=== PATIENT | female | born 1955 | race Caucasian/White ===

== ENCOUNTER 2019-05-06 06:36 | Inpatient (IN) | payer OTHER ==
[2019-05-06] MEDS ORDERED: Ringers Lactate 1,000 ML IV ONE (07:16)
[2019-05-06] MEDS ORDERED: MIDAZOLAM HCL 2 MG/2 ML INJ ONE (07:30)
[2019-05-06] MEDS ORDERED: FENTANYL CITR 100 MCG/2 ML ONE (07:30)
[2019-05-06] MEDS ORDERED: LIDOCAINE 1% MPF 30 ML VIAL ONE ×2 (07:30→07:36)
[2019-05-06] MEDS ORDERED: PROPOFOL 200 MG/20 ML VIAL IV ONE (07:30)
[2019-05-06] MEDS: LIDOCAINE 4% TOP SOLUTION ONE ×2 (07:35→07:50)
[2019-05-06] MEDS ORDERED: GLYCOPYRROLATE 0.2 MG/ML SYR ONE (07:36)
[2019-05-06] MEDS ORDERED: Phenylephrine HCl 10 MG/ML 1 ML VIAL ONE (07:36)
--- NOTE | 2019-05-06 10:03 | RAD REPORT ---
EXAM DESCRIPTION: RAD - Chest Single View - 05/06/2019 9:48 am CLINICAL HISTORY: Post bronchoscopy chest film COMPARISON: Chest exam April 02, 2019, CT chest April 15, 2019 TECHNIQUE: AP portable chest image was obtained . FINDINGS: Approximately 20% pneumothorax is present in the lateral right lung base. No pneumothorax seen in the upper right lung field. There is an increase in overall density to the right lung parench yma. This is likely a combination of atelectasis and hemorrhage around the previously detailed lung m ass. Trachea remains midline. Left lung field is clear. Heart and vasculature are normal. No pleural fluid collections seen. No acute bony abnormality seen. No acute aortic findings suspected. Findings telephoned to same-day surgery. IMPRESSION: Approximately 20% right side pneumothorax at the base. Right lower lobe opacification from a combination of atelectasis and a small amount of hemorrhage carson und the known mass.
--- NOTE | 2019-05-06 10:28 | RAD REPORT ---
EXAM DESCRIPTION: RAD - FLUORO-GUIDE FOR BRONCH UPT1HR - 05/06/2019 9:07 am FINDINGS: There were 4 portable C-arm views submitted from a fluoroscopic assisted right lower lobe bronchoscopic biopsy. Fluoro time was 2 minutes 47 seconds.
--- NOTE | 2019-05-06 11:32 | RAD REPORT ---
EXAM DESCRIPTION: RAD - Chest Single View - 05/06/2019 11:23 am CLINICAL HISTORY: repeat from pneumo Pneumothorax COMPARISON: Chest Single View dated 05/06/2019; Chest Pa And Lat (2 Views) dated 04/02/2019; Chest Pa And Lat (2 Views) dated 03/17/2019; Thorax W/ Con dated 04/15/2019; FLUORO-GUIDE FOR BRONCH UPT1HR dated 05/06/2019 FINDINGS: Portable technique limits examination quality. The patient's known right-sided pneumothorax has mildly increased in size, now estimated at 30% total lung volume. Opacity in the right lower lobe appears unchanged. The heart is mildly prominent in siz e.
--- NOTE | 2019-05-06 12:02 | P.HP ---
Certification for Inpatient Patient admitted to: Inpatient With expected LOS: <2 Midnights Patient will require the following post-hospital care: None Practitioner: I am a practitioner with admitting privileges, knowledge of patient current condition, hospital course, and medical plan of care. Services: Services provided to patient in accordance with Admission requirements found in Title 42 Section 412.3 of the Code of Federal Regulations Patient History Date of Service: 05/06/19 Reason for admission: Pneumothorax after lung biopsy History of Present Illness: PT is 63 yrs of age AW pneumothorax after lung biopsy. Slight progression . Hxof COPD c/o r sided chest pain. Hx of pneumothorax Allergies morphine Adverse Reaction (Verified 05/06/19 08:54) Nausea/Vomiting - Past Medical/Surgical History -: Depression -: recurrent pneumothorax -: Hysterectomey -: lumpectomy Review of Systems 10-point ROS is otherwise unremarkable Respiratory: Shortness of Breath, Pleuritic Pain Cardiovascular: Chest Pain Physical Examination - Vital Signs Temperature: 97.1 F Blood Pressure: 166/83 Pulse: 68 Respirations: 16 - Physical Exam General: Alert, Oriented x3, Mild distress Neck: Supple Respiratory: Clear to auscultation bilaterally, Diminished Cardiovascular: No edema, Normal pulses, Regular rate/rhythm, Normal S1 S2 Gastrointestinal: Normal bowel sounds, Soft and benign, Non-distended Assessment and Plan - Problems (Diagnosis) (1) Pneumothorax after biopsy Current Visit: Yes Status: Acute Plan: Admit obesrve. May need chest tube, Consult Dr. Francois. Repeat CXRY in 1 hours. Slight progression of pneumo. Hxof tobacco use Plan to discharge in: 48 Hours - Advance Directives Does patient have a Living Will: No Does patient have a Durable POA for Healthcare: No
--- NOTE | 2019-05-06 12:05 | P.OP ---
Date of Service: 05/06/19 (RLL Lung Biopsy with BAL) Findings and Operative Technique Pt is 63 yrs of age evaluated for RLL lung mass simona for bronc today and developed a pneumo after the procedure. Hx of RLL mass. High risk for cancer. Bronch otherwise normal .No mass visible. Multiple Bipsies and BAl form RLL.Sedation by anesthesia. After from one episode of desat pt did well Normal vocal cords and trachea.
--- NOTE | 2019-05-06 13:40 | RAD REPORT ---
EXAM DESCRIPTION: RAD - Chest Single View - 05/06/2019 1:20 pm CLINICAL HISTORY: Post bronchoscopy pneumothorax COMPARISON: Expiration chests May 06 TECHNIQUE: AP portable chest image was obtained as a portable examination 1317 hours . FINDINGS: Right base pneumothorax has worsened to approximately 40%. There is greater atelectasis of the right middle and lower lobes. Pneumothorax extends along the upper lateral right chest with some minimal or very early volume loss of the right upper lobe. Heart and vasculature are normal. No pleural fluid component. No acute bony abnormality seen. No acu te aortic findings suspected. Findings telephoned to the referring physician 1336 hours. IMPRESSION: Further worsening of the right-sided pneumothorax now approximately 40%.
[2019-05-06] MEDS ORDERED: NICOTINE 21 MG/PAT TD SCH (14:00)
[2019-05-06] MEDS ORDERED: PARoxetine HCl 10 MG TAB PO SCH (14:00)
[2019-05-06] MEDS: METHYLPREDNISOLONE 40 MG INJ IV SCH (14:04)
[2019-05-06] MEDS: IPRATROPIUM BROM 0.5MG/2.5ML NEB SCH ×2 (14:25→20:00)
[2019-05-06] MEDS: ARFORMOTEROL TARTRATE 15 MCG/2 ML VIAL.NEB NEB SCH ×2 (14:25→20:00)
[2019-05-06] MEDS ORDERED: LIDOCAINE 1% MPF 30 ML VIAL SQ ONE ×2 (14:27→15:00)
[2019-05-06] MEDS: FENTANYL CITR 100 MCG/2 ML IV PRN ×2 (15:11→20:22)
--- NOTE | 2019-05-06 15:11 | P.OP ---
Preoperative diagnosis: RIGHT Pneumothorax Postoperative diagnosis: RIGHT Pneumothorax Primary procedure: Placement of Right Thoracostomy Tube Anesthesia: Local 1% lidocaine Estimated blood loss: <1cc Specimen: None Findings: Good air return Complications: None Drain(s): Other (18 Icelandic THAL chest tube) Transferred to: Other (room) Condition: Good
--- NOTE | 2019-05-06 15:40 | RAD REPORT ---
EXAM DESCRIPTION: RAD - Chest Single View - 05/06/2019 3:32 pm CLINICAL HISTORY: new chest tube Chest pain. COMPARISON: <Comparisons> FINDINGS: Portable technique limits examination quality. The right-sided chest tube has been placed its tip directed cephalad along the lateral pleural space on the right. Previously noted pneumothorax has been significantly decompressed. Opacity in the right lung base persists.
[2019-05-06] MEDS: HYDROCODONE/APAP 5/325 MG TAB PO PRN (18:40)
[2019-05-06] MEDS: NICOTINE 21 MG/PAT TD SCH (20:15)
[2019-05-06] MEDS: PARoxetine HCl 10 MG TAB PO SCH (20:15)
--- NOTE | 2019-05-06 21:17 | CON ---
Date of Consultation: 05/06/2019 History Of Present Illness: Patient is a 63-year-old woman who presents to the hospital fo r bronchoscopy with Dr. Andre Solitario, who performed a lung biopsy/bronchoscopy. Patient had devel opment of a small pneumothorax, which continued to progress throughout the course of the day and as s uch I was consulted for placement of right thoracostomy tube to allow for resolution and improvement of the right-sided pneumothorax. Patient does have a history of COPD and right-sided chest pain and a history of pneumothorax prior. Past Medical History: Significant for depression, recurrent pneumothorax, hysterectomy, lumpectomy. Allergies: MORPHINE. Review of Systems: A 10-point review of systems other than in HPI, she has no shortness of breath at this time. Physical Examination: Vital Signs: At the time of my examination, her BMI is 26.6. Her blood pressure 148/75, respiratory rate 16, pulse is 65, temperature is 98.2. General: She is awake, alert, and oriented. Psychiatric: She is appropriate and conversive. She appears mildly short of breath, but is able to talk with oxygen on. HEENT: Otherwise normocephalic. Sclerae are anicteric. Mucous membranes are moist. Oropharynx is clear. Poor dentition. Neck: Supple. No JVD. Chest: Normal expansion and excursion. There is decreased breath sounds on the right. Abdomen: Soft, nontender, nondistended. Extremities: Skin is warm and dry. Imaging Studies: She had imaging performed which included a chest x-ray, the last of which showed ex pansion and pneumothorax to approximately 40% on the right. Assessment And Plan: This is a 63-year-old female who has signs and symptoms of a progressing pneumo thorax on the right. 1.Continue medical management. 2.I explained the risks, benefits, and alternatives of placement of right thoracostomy tube, includi ng but not limited to bleeding, infection, damage to surrounding tissues, including nerves and lung, need for further operations and procedures, the patient agrees to proceed as indicated. Thank you for this interesting consult. EDIE/TERRI Voice ID: [id number] Report ID: [id number]
[2019-05-07] MEDS: METHYLPREDNISOLONE 40 MG INJ IV SCH ×2 (00:16→08:27)
[2019-05-07] MEDS: HYDROCODONE/APAP 5/325 MG TAB PO PRN ×2 (00:22→20:39)
[2019-05-07] MEDS: IPRATROPIUM BROM 0.5MG/2.5ML NEB SCH ×2 (02:00→08:10)
--- NOTE | 2019-05-07 02:14 | OP ---
Date of Procedure: 05/06/2019 Surgeon: Gavin Pickard MD, Preoperative Diagnosis: Right pneumothorax. Postoperative Diagnosis: Right pneumothorax. Procedure Performed: Placement of a right thoracostomy tube. Anesthesia: Local 1% lidocaine used. Estimated Blood Loss: Less than 1 mL. Specimen: None. Findings: Good air returned. Complications: None. Drains: An 18-Tunisian Thal chest tube was placed in the right 6th, 7th intercostal space. Condition: Patient remained in room in good condition throughout the procedure. Procedure In Detail: After informed consent was obtained, patient was prepped and draped in the usua l sterile fashion. After adequate anesthesia was achieved with 1% lidocaine, I placed a finder needl e into the thoracic cavity, obtained bubbles at approximately 6th and 7th intercostal space on the ri ght slightly anterior to the midaxillary line. The wire was then advanced into the chest cavity with out evidence of complication. I made an incision with the scalpel to allow for placement of the ches t tube. I then used sequential dilatation using Seldinger technique over the wire to go over the rib in the intercostal space without evidence of complication. The 18-Tunisian Thal chest tube was then d irected posterior superiorly and passed, and easily air was returned and I could hear titling air thr ough the chest tube. We then secured to the skin with a 0 nylon suture which was in the set and a st erile dressing was placed over top. The assembly was hooked up to Pneumo-Vac suction and to the wall at 40 mmHg of wall suction and bubbles were emanating and titling quite well. The patient tolerated the procedure well without evidence of complication and remained in the room throughout the procedur e in good condition. All counts were correct at the end of the case. EDIE/MODL Voice ID: [id number] Report ID: [id number]
[2019-05-07] MEDS: ARFORMOTEROL TARTRATE 15 MCG/2 ML VIAL.NEB NEB SCH ×2 (08:10→20:00)
--- NOTE | 2019-05-07 08:14 | RAD REPORT ---
EXAM DESCRIPTION: Sherri Single View05/07/2019 6:48 am CLINICAL HISTORY: Chest pain COMPARISON: May 06, 2019 FINDINGS: Right chest tube remains place. Minimal right pneumothorax is present. No other significant change IMPRESSION: Minimal right pneumothorax
--- NOTE | 2019-05-07 08:57 | P.PN ---
Subjective Date of Service: 05/07/19 Chief Complaint: Pneumothorax after lung biopsy Subjective: Improving (Patient is doing well there is no air leak on the chest tube with chest pain has declined) Review of Systems General: Weakness Cardiovascular: Chest Pain Physical Examination - Vital Signs Temperature: 98.2 F Blood Pressure: 174/77 Pulse: 52 Respirations: 20 Pulse Ox (%): 100 - Physical Exam General: Alert, Oriented x3 HEENT: PERRLA Neck: No Thyromegaly Cardiovascular: No edema, Regular rate/rhythm Assessment & Plan - Problems (Diagnosis) (1) Pneumothorax after biopsy Current Visit: Yes Status: Acute Plan: Patient is doing much better status post chest tube there is no air leak at lung is fully expanded discuss with pathology FNA is nondiagnostic plan to proceed with a fine-needle aspiration biopsy of the right lung mass discuss with the radiologist the labs ordered
[2019-05-07 09:29] LABS: Absolute Lymphocytes (CBC) 0.6 K/uL (0.7-4.9); Basophils % 0.1 % (0-1.3); Hematocrit 41.8 % (36.0-45.0); Lymphocytes % 6.7 % (15.3-44.8); MPV 7.7 fL (7.6-11.3); RBC Red Blood Cell Count 4.67 M/uL (3.86-4.86)
[2019-05-07 09:32] LABS: Protime INR 1.03
[2019-05-07 09:42] LABS: Potassium 4.4 mmol/L (3.5-5.1)
[2019-05-07 11:40] LABS: Blood Morphology Comment NOT SEEN (NOT SEEN); Platelet Estimate ADEQ; Urine White Blood Cell Casts OK
--- NOTE | 2019-05-07 15:57 | RAD REPORT ---
EXAM DESCRIPTION: RAD - Chest Single View - 05/07/2019 3:41 pm CLINICAL HISTORY: Chest Tube Chest pain. COMPARISON: Chest Single View dated 05/07/2019; Chest Single View dated 05/06/2019; Chest Single View dated 05/06/2019; Chest Single View dated 05/06/2019 FINDINGS: Portable technique limits examination quality. Small right-sided chest tube remains in place. Minimal right apical pneumothorax persists. Linear opa cities in the right lung base are noted likely atelectasis. The heart is upper limit of normal in siz e. No displaced fractures.
[2019-05-07 20:03] LABS: Urine Appearance CLEAR; Urine Bilirubin NEGATIVE (NEG); Urine Blood 2+ (NEG); Urine Color YELLOW; Urine Glucose NEGATIVE (NEG); Urine Protein NEGATIVE (NEG); Urine Specific Gravity 1.015 (1.005-1.030); Urine Urobilinogen 0.2 mg/dL (0.2-1.0); Urine pH 6.5 (5.0-7.0)
[2019-05-07 20:16] LABS: Urine Bacteria 20-50 /HPF (<20); Urine Culture Reflex Order REFLEXED
[2019-05-07] MEDS: PARoxetine HCl 10 MG TAB PO SCH (20:38)
[2019-05-07] MEDS: NICOTINE 21 MG/PAT TD SCH (20:39)
[2019-05-08] MEDS: FENTANYL CITR 100 MCG/2 ML IV PRN ×2 (06:28→15:38)
[2019-05-08] MEDS: ARFORMOTEROL TARTRATE 15 MCG/2 ML VIAL.NEB NEB SCH ×2 (08:45→19:45)
[2019-05-08] MEDS: IPRATROPIUM BROM 0.5MG/2.5ML NEB PRN ×2 (08:45→19:45)
--- NOTE | 2019-05-08 09:42 | P.PN ---
Subjective Date of Service: 05/08/19 Chief Complaint: Pneumothorax after lung biopsy Subjective: Improving Physical Examination - Vital Signs Temperature: 97.4 F Blood Pressure: 144/70 Pulse: 61 Respirations: 18 Pulse Ox (%): 96 - Physical Exam General: Alert, In no apparent distress, Cooperative Respiratory: Clear to auscultation bilaterally, Normal air movement, Other ( RIGHT chest tube in place, minimal air leak) - Studies Laboratory Data (last 24 hrs) 05/07/19 09:17: Sodium 139, Potassium 4.4, BUN 12, Creatinine 0.99, Glucose 247 H 05/07/19 09:17: WBC 9.2, Hgb 13.9, Hct 41.8, Plt Count 281 Assessment And Plan - Plan Patient to get CT guided biopsy of mass today - will likely DC chest tube in AM - continue plan per Dr. Sanches
[2019-05-08] MEDS ORDERED: MIDAZOLAM HCL 2 MG/2 ML INJ ONE ×2 (09:48→09:50)
[2019-05-08] MEDS ORDERED: NA CHLORIDE 0.9% 1,000 ML ONE (09:49)
[2019-05-08] MEDS ORDERED: NALOXONE 0.4 MG/ML VIAL ONE (09:49)
[2019-05-08] MEDS ORDERED: FENTANYL CITR 100 MCG/2 ML ONE (09:49)
--- NOTE | 2019-05-08 11:55 | RAD REPORT ---
EXAM DESCRIPTION: CT - Lung Biopsy Perc w/CT - 05/08/2019 11:38 am CLINICAL HISTORY: FNA R lung mass, To be done by radiology Right lung mass COMPARISON: Chest Single View dated 05/07/2019 FINDINGS: Preoperative diagnosis: Right lung mass Post operative diagnosis: Same Conscious Sedation: 45 minutes of IV conscious sedation was administered to the patient utilizing mid azolam and fentanyl. Patient was continuously monitored by nursing staff. Contrast used: NONE Estimated blood loss: less than 5 mL Specimens: 2 x 2 cm 18 gauge core specimens The patient was placed prone on the table and the posterior right back area was prepped and draped in the usual sterile fashion. 1% lidocaine was infiltrated into the subcutaneous tissues for local anes thesia. Under computed tomographic guidance, a 17 gauge introducer was advanced into the lesion. Subs equently, a 18 gauge, 10 cm long, 20 mm throw core biopsy gun was advanced into the lesion and 2 core s were obtained. Postprocedure imaging demonstrated pre-existing pneumothorax with chest tube in place. Samples were g iven to pathology for analysis. The patient tolerated the procedure without immediate complication an d transferred to the floor in stable condition. IMPRESSION: Successful CT guided right lung mass biopsy. 45 minutes IV conscious sedation was utilized. All CT scans are performed using dose optimization technique as appropriate and may include automated exposure control or mA/KV adjustment according to patient size.
--- NOTE | 2019-05-08 12:03 | P.PN ---
Subjective Date of Service: 05/08/19 Chief Complaint: Status post fine needle biopsy Subjective: Improving (Patient is doing well still has some discomfort improving she just recently had a needle biopsy done) Review of Systems General: Weakness Respiratory: Shortness of Breath, Pleuritic Pain Physical Examination - Vital Signs Temperature: 97.4 F Blood Pressure: 144/70 Pulse: 61 Respirations: 18 Pulse Ox (%): 96 - Physical Exam General: Alert, Oriented x3 Neck: Supple Respiratory: Clear to auscultation bilaterally, Normal air movement Cardiovascular: No edema, Regular rate/rhythm, Normal S1 S2 Assessment & Plan - Problems (Diagnosis) (1) Pneumothorax after biopsy Current Visit: Yes Status: Acute Plan: Doing much better no air leak recent FNA of the right lung mass continue to monitor Dc suction repeat chest x-ray possible removal of chest tube tomorrow and discharge
--- NOTE | 2019-05-08 14:03 | RAD REPORT ---
EXAM DESCRIPTION: RAD - Chest Single View - 05/08/2019 1:57 pm CLINICAL HISTORY: post biopsy Chest pain. COMPARISON: Chest Single View dated 05/07/2019; Chest Single View dated 05/07/2019; Chest Single View dated 05/06/2019; Chest Single View dated 05/06/2019 FINDINGS: Portable technique limits examination quality. Small right apical pneumothorax is present, essentially unchanged from comparative study. Mild pneumo thorax is also seen along the medial aspect of the right lung. Right-sided chest tube remains in plac e. Mild linear opacities is noted in the right lung base, unchanged. The heart is normal in size. IMPRESSION: No significant change is seen in the small right-sided pneumothorax.
--- NOTE | 2019-05-08 19:19 | RAD REPORT ---
EXAM DESCRIPTION: RAD - Chest Single View - 05/08/2019 6:06 pm CLINICAL HISTORY: Pneumothorax follow-up COMPARISON: May 08 TECHNIQUE: AP portable chest image was obtained in expiration 1752 hours . FINDINGS: Chest tube remains in place. Right base opacification is most likely atelectasis. Pneumoth orax is difficult to identified. There may be a very small remnant at the apex. Lateral or lateral ba se pneumothorax not confirmed. Anterior pneumothorax can be occult on portable imaging. Trachea is midline. Left base atelectasis present. Heart and vasculature are normal. No new or enlarg ing pleural fluid collection. No acute bony abnormality seen. No acute aortic findings suspected. IMPRESSION: Chest tube remains in place. Little if any remaining pneumothorax is identifiable. There may be a very minute remnant at the right apex.
[2019-05-08] MEDS: NICOTINE 21 MG/PAT TD SCH (21:47)
[2019-05-08] MEDS: PARoxetine HCl 10 MG TAB PO SCH (21:47)
--- NOTE | 2019-05-08 22:37 | P.PN ---
Date of Service: 05/08/19 I reviewed the chest Xray and called the charge nurse at 8.36 PM and gave a verbal order her to D/C chest tube suction not D/C chest chest tube. (Dr. Fracnois had planned to removed the chest tube in am if the lung if there was no pneumothorax) The charge nurse then contacted the house designer who then proceeded to contact Fabian FARRAR in ER to assist in the removal of the chest tube. The chest tube was removed by the PA and I was called after the fact. Earlier this afternoon after FNA there was no air leak and repat CXry showed minimal R apical pneumothorax with no change as per radiologist report Pt is doing well feels fine no chest pain or SOB. repeat Cxry after removal shows complete expansion. Radiologist to review the CXRY O/E patient is alert oriented responsive and in no discomfort.chest clear good AE bialterally. Sat 96% Ra. viatal stable Pt. Refused pain meds Instructed patient to contact if she experieinces any discomfort or SOB. Instructed the nurse to contact me and Dr. Francois if condition of the patient changes
--- NOTE | 2019-05-09 08:20 | RAD REPORT ---
EXAM DESCRIPTION: RAD - Chest Single View - 05/09/2019 6:30 am CLINICAL HISTORY: Follow for pneumothorax Chest pain. COMPARISON: Chest Single View dated 05/08/2019; Chest Single View dated 05/08/2019; Chest Single View dated 05/08/2019; Chest Single View dated 05/07/2019 FINDINGS: Portable technique limits examination quality. The previously noted right-sided pneumothorax appears improved. A small right apical pneumothorax is still seen. Mild linear opacities are present in the right lower lobe. The heart is upper limit of no rmal in size. No displaced fractures.
--- NOTE | 2019-05-09 09:00 | P.PN ---
Subjective Date of Service: 05/09/19 Chief Complaint: Status post fine needle biopsy Subjective: Improving Patient had chest tube pulled by nursing staff last evening. Physical Examination - Vital Signs Temperature: 98.6 F Blood Pressure: 142/74 Pulse: 66 Respirations: 18 Pulse Ox (%): 95 - Physical Exam General: Alert, In no apparent distress, Cooperative Respiratory: Clear to auscultation bilaterally, Other (chest tube site is clean and dry) - Studies Microbiology Data (last 24 hrs): 05/07/19 19:17 Clean Catch Urine Beverly Count - Final BETWEEN 10,000 & 100,000 CFU/ML 05/07/19 19:17 Clean Catch Urine - Final Escherichia Coli Assessment And Plan - Plan - Incident: staff pulled chest tube due to misunderstanding of Dr. Amezcua recommendations last evening. Please see Dr. Sanches note for full details, I was informed of incident by Dr. Sanches - patient doing well - continue plan per Dr. Sanches
--- NOTE | 2019-05-09 10:46 | RAD REPORT ---
EXAM DESCRIPTION: Chest Single View CLINICAL HISTORY: 63 years Female, chest tube removal, upright COMPARISON: None. FINDINGS: The heart and mediastinum are remarkable for atherosclerosis of the thoracic aorta.. The lung mercado are clear of active infiltrates. There is mild subsegmental right basilar atelectasis. There is no evidence of pneumothorax. The pulmonary vascularity is unremarkable. No active pleural disease is present. IMPRESSION: 1. No pneumothorax. Electronically signed by: Kieran Fletcher MD 05/08/2019 10:45 PM CDT Due to temporary technical issues with the PACS/Fluency reporting system, reports are being signed by the in house radiologist as a courtesy to ensure prompt reporting. The interpreting radiologist is f ully responsible for the content of the report.
== END 2019-05-09 11:46 | disposition home or self-care (01) | DRG 201 ==
LOC: OR 06:36 → 2ND 13:32 → OBSVTOIN 13:32
PROVIDERS: ADMIT Internal Medicine Sleep Medicine; ATTEND Internal Medicine Sleep Medicine
PROC: 0W9930Z Drainage of Right Pleural Cavity with Drainage Device, Percutaneous Approach (ICD-10-PCS; 2019-05-06)
PROC: 0B9F8ZX Drainage of Right Lower Lung Lobe, Via Natural or Artificial Opening Endoscopic, Diagnostic (ICD-10-PCS; principal; 2019-05-06 08:00)
PROC: 0BB63ZX Excision of Right Lower Lobe Bronchus, Percutaneous Approach, Diagnostic (ICD-10-PCS; 2019-05-08)
DX: J95.811 Postprocedural pneumothorax (principal); Y84.8 Other medical procedures as the cause of abnormal reaction of the patient, or of later complication, without mention of misadventure at the time of the procedure; Y82.8 Other medical devices associated with adverse incidents; Y92.234 Operating room of hospital as the place of occurrence of the external cause; F32.9 Major depressive disorder, single episode, unspecified
CPT/HCPCS: 32405; 36415; 71045; 76000; 77012; 80048; 81001; 85025; 85610; 87015; 87077; 87086; 87088; 87102; 87116; 87186; 87206; 88108; 88305; 88333; 94640; 94760; J2250; J2310; J2370; J2704; J2920; J3010; J7030; J7605